=== PATIENT | male | born 1995 | race Caucasian/White ===

== ENCOUNTER 2017-05-20 09:21 | Outpatient (CLI) | payer OTHER ==
[2017-05-20 17:53] LABS: BASOPHILS % (AUTO) 0.4 %; EOSINOPHILS # (AUTO) 0.1 10^3/uL (0.0-0.7); HCT - HEMATOCRIT 42.7 % (42.0-52.0); HGB - HEMOGLOBIN 14.1 g/dL (14.0-18.0); LYMPHOCYTES % (AUTO) 19.2 %; MEAN CORPUSCULAR HEMOGLOBIN 27.5 pg (27.0-31.0); MEAN CORPUSCULAR VOLUME 83.3 fL (80.0-94.0); MEAN PLATELET VOLUME 9.1 fL (7.4-11.4); MONOCYTES # (AUTO) 0.8 10^3/uL (0.0-1.0); MONOCYTES % (AUTO) 7.3 %; NEUTROPHILS # (AUTO) 7.7 10^3/uL (1.5-6.6); NEUTROPHILS % (AUTO) 72.1 %; NUCLEATED RED BLOOD CELLS AUTO 0.2 /100WBC; RED BLOOD COUNT 5.13 10^6/uL (4.70-6.10); UNCORRECTED WHITE BLOOD COUNT 10.6 x10^3/uL; WHITE BLOOD COUNT 10.6 x10^3/uL (4.8-10.8)
[2017-05-20 18:00] LABS: BILIRUBIN,URINE NEGATIVE (NEGATIVE); PH,URINE 7.5 PH (5.0-7.5)
[2017-05-20 18:18] LABS: ALBUMIN/GLOBULIN RATIO 1.4 (1.0-2.2); BILIRUBIN,TOTAL 0.8 mg/dL (0.2-1.0); CALCIUM 9.3 mg/dL (8.5-10.3); CREATININE 0.6 mg/dL (0.6-1.2); POTASSIUM 3.7 mmol/L (3.5-5.0); TOTAL PROTEIN 7.7 g/dL (6.7-8.2)
[2017-05-20 18:27] LABS: WBC,URINE 0-3 /HPF (0-3)
[2017-05-21 08:56] LABS: TEST RESULT REPORT (())
[2017-05-25 23:58] LABS: HSV 1 IGG INDEX <0.90 INDEX (()); HSV 1/2 IGM INDEX <0.90 INDEX (()); HSV 2 IGG INDEX <0.90 INDEX (())
== END 2017-05-20 09:22 | disposition home or self-care (01) ==
LOC: LAB.F 09:21
PROVIDERS: ATTEND Internal Medicine
DX: Z00.00 Encounter for general adult medical examination without abnormal findings (principal); R31.0 Gross hematuria; Z11.3 Encounter for screening for infections with a predominantly sexual mode of transmission
CPT/HCPCS: 36415; 80053; 81001; 81599; 85025; 86592; 86694; 86695; 86696; 86803; 87389; 87491; 87591

== ENCOUNTER 2017-05-27 11:30 | Outpatient (CLI) | payer OTHER ==
[2017-05-27 18:22] LABS: BILIRUBIN,URINE NEGATIVE (NEGATIVE)
[2017-05-27 18:32] LABS: UR CULTURE IF IND NOT INDICATED; WBC,URINE 0-3 /HPF (0-3)
== END 2017-05-27 11:31 | disposition home or self-care (01) ==
LOC: LAB.R 11:30
PROVIDERS: ATTEND Family Medicine
DX: R31.0 Gross hematuria (principal)
CPT/HCPCS: 81001; 87086

== ENCOUNTER 2017-06-17 11:09 | Outpatient (CLI) | payer OTHER ==
[2017-06-17] MEDS ORDERED: IOPAMIDOL-300 100 ML VIAL ONE (12:11)
[2017-06-17] MEDS ORDERED: IOPAMIDOL-300 100 ML VIAL IVP ONE (12:39)
--- NOTE | 2017-06-17 14:28 | CT Report ---
EXAM: CT ABDOMEN AND PELVIS WITHOUT AND WITH CONTRAST (CT IVP) EXAM DATE: 06/17/2017 01:53 PM. CLINICAL HISTORY: Hematuria gross. COMPARISONS: None. TECHNIQUE: Routine helical imaging was performed through the kidneys, ureters and bladder before and after IV contrast administration. IV Contrast: 100 cc Isovue-300. Reconstructions: Coronal and sagitt al. In accordance with CT protocol optimization, one or more of the following dose reduction techniques w ere utilized for this exam: automated exposure control, adjustment of mA and/or KV based on patient s ize, or use of iterative reconstructive technique. FINDINGS: Lung Bases: Clear. Right Kidney/Ureter: A 3 x 4 mm proximal right ureteral calculus at the L3-L4 disk space level result s in moderate hydronephrosis and proximal ureteral dilatation. No residual intrarenal calculus or foc al renal lesion. Diffuse renal swelling and delayed contrast excretion with persistent nephrogram. Co llecting system and ureter are not opacified on delayed scan. No perinephric fluid or significant per inephric fat stranding. Decompressed distal ureter. Left Kidney/Ureter: No hydronephrosis, hydroureter, or ureteral calculus. At least 5 small intrarenal calculi, largest 3 mm in upper pole, others punctate. Normal parenchymal enhancement. A tiny mid trina e cyst. No suspicious filling defects in the opacified collecting system and ureter. Other Abdominal Organs: The liver, spleen, pancreas, gallbladder, and adrenal glands are unremarkable .No calcified gallstone or biliary ductal dilatation. Peritoneal Cavity/Bowel: No free fluid, free air or adenopathy. No intestinal dilatation. Normal appe ndix. Pelvic Organs: No stone or gross abnormality of the suboptimally distended bladder. Other pelvic orga ns unremarkable. Vasculature: Unremarkable. Bones: Mild grade 1 anterolisthesis L5 on S1 secondary to bilateral pars defect. Small sclerotic foci in bilateral femoral heads, presumably benign bone islands. IMPRESSION: 1. A 3 x 4 mm obstructing proximal right ureteral calculus at the L3-L4 disk space level results in m oderate right hydronephrosis and renal functional delay. No perinephric fluid. 2. Nonobstructive left nephrolithiasis. No residual right intrarenal calculus. 3. No other suspicious findings of the upper tracts. Grossly unremarkable bladder. 4. Note made of grade 1 anterolisthesis L5 on S1 secondary to bilateral L5 pars defect. Other inciden danya findings, as noted. [facility] Referring Provider Line: [phone] SITE ID: [id number]
== END 2017-06-17 11:10 | disposition home or self-care (01) ==
LOC: DI 11:09
PROVIDERS: ATTEND Family Medicine
DX: N13.2 Hydronephrosis with renal and ureteral calculous obstruction (principal); N20.0 Calculus of kidney
CPT/HCPCS: 74178; Q9967

== ENCOUNTER 2017-06-17 12:57 | Emergency (ER) | payer OTHER ==
[2017-06-17 14:03] LABS: BASOPHILS % (AUTO) 0.3 %; EOSINOPHILS # (AUTO) 0.1 10^3/uL (0.0-0.7); HCT - HEMATOCRIT 41.4 % (42.0-52.0); LYMPHOCYTES # (AUTO) 2.4 10^3/uL (1.5-3.5); LYMPHOCYTES % (AUTO) 20.8 %; MEAN CORPUSCULAR HEMOGLOBIN 27.2 pg (27.0-31.0); MEAN CORPUSCULAR HGB CONC 33.8 g/dL (32.0-36.0); MEAN CORPUSCULAR VOLUME 80.6 fL (80.0-94.0); MEAN PLATELET VOLUME 7.6 fL (7.4-11.4); MONOCYTES # (AUTO) 1.1 10^3/uL (0.0-1.0); NEUTROPHILS # (AUTO) 7.7 10^3/uL (1.5-6.6); NEUTROPHILS % (AUTO) 67.9 %; RED BLOOD COUNT 5.14 10^6/uL (4.70-6.10); RED CELL DISTRIBUTION WIDTH 13.4 % (12.0-15.0); UNCORRECTED WHITE BLOOD COUNT 11.3 x10^3/uL; WHITE BLOOD COUNT 11.3 x10^3/uL (4.8-10.8)
[2017-06-17 14:13] LABS: BILIRUBIN,URINE NEGATIVE (NEGATIVE); PH,URINE 7.5 PH (5.0-7.5)
[2017-06-17 14:15] LABS: UA w/ MICROSCOPIC CHARGE YES
[2017-06-17 14:21] LABS: ALBUMIN/GLOBULIN RATIO 1.5 (1.0-2.2); BILIRUBIN,TOTAL 1.1 mg/dL (0.2-1.0); CALCIUM 9.8 mg/dL (8.5-10.3); CREATININE 1.4 mg/dL (0.6-1.2); POTASSIUM 3.5 mmol/L (3.5-5.0); TOTAL PROTEIN 7.8 g/dL (6.7-8.2)
[2017-06-17 14:22] LABS: UR CULTURE IF IND NOT INDICATED; WBC,URINE 0-3 /HPF (0-3)
--- NOTE | 2017-06-17 14:59 | ED Physician Documentation ---
PD HPI NVD - Stated complaint Stated Complaint: ABD PX - Chief complaint Chief Complaint: Abd Pain - History obtained from History obtained from: Patient - History of Present Illness Timing - onset: Yesterday Timing - details: Still present Associated symptoms: Abdominal pain Recently seen: Clinic (Was seen in clinic three weeks ago for hematuria. A CT scan was ordered at that time, and the patient just underwent the study today.) - Additonal information Additional information: The patient is a 21-year-old male who presents with abdominal pain radiating to his right flank. The pain started yesterday and was worse during the night. He reports associated vomiting yesterday, but not today. He denies diarrhea or fever. He denies dysuria. He reports a history of constipation in the past, stating that his last bowel movement was "a couple of days ago." 3 weeks ago he had hematuria and was seen in clinic. A CT scan of the abdomen and pelvis was performed to evaluate the renal collecting system at that time. The patient had the study done today just prior to coming to the emergency department. Review of Systems Constitutional: reports: Chills. denies: Fever Nose: denies: Congestion Throat: denies: Sore throat Cardiac: denies: Chest pain / pressure Respiratory: denies: Dyspnea, Cough GI: reports: Abdominal Pain, Nausea, Vomiting. denies: Diarrhea : denies: Dysuria Skin: denies: Rash Musculoskeletal: reports: Back pain (Right flank). denies: Extremity pain Neurologic: denies: Focal weakness, Numbness, Headache PD PAST MEDICAL HISTORY - Past Medical History Past Medical History: No Endocrine/Autoimmune: None - Past Surgical History Past Surgical History: No - Present Medications Home Medications: Ambulatory Orders Medication Instructions Recorded Confirmed HYDROcod/ACETAM 5/325 [[place] 5/325] 1 - 2 ea PO Q6H PRN #20 tablet 06/17/17 Promethazine [Phenergan] 25 - 50 mg PO Q6H PRN #10 tab 06/17/17 - Allergies Allergies/Adverse Reactions: Allergies Allergy/AdvReac Type Severity Reaction Status Date / Time No Known Drug Allergies Allergy Verified 06/17/17 13:12 - Social History Does the pt smoke?: Yes Smoking Status: Current every day smoker Does the pt drink ETOH?: Yes Does the pt have substance abuse?: No - Immunizations Immunizations are current?: Yes - POLST Patient has POLST: No PD ED PE NORMAL - Vitals Vital signs reviewed: Yes (Borderline hypertension initially.) - General General: Alert and oriented X 3, Well developed/nourished - HEENT HEENT: Atraumatic, Pharynx benign - Neck Neck: Supple, no meningeal sign, No adenopathy - Cardiac Cardiac: RRR, No murmur - Respiratory Respiratory: No respiratory distress, Clear bilaterally - Abdomen Abdomen: Normal bowel sounds, Soft, No organomegaly, Other (Mild tenderness palpation in the right mid to lower abdomen, without rebound tenderness or guarding.) - Back Back: Other (Right CVA tenderness to percussion.) - Derm Derm: No rash - Extremities Extremities: No edema, No calf tenderness / cord - Neuro Neuro: Alert and oriented X 3, No motor deficit, Normal speech Results - Vitals Vitals: Vital Signs - 24 hr 06/17/17 06/17/17 13:10 15:48 Temperature 36.7 C 36.5 C Heart Rate 100 65 Respiratory 20 18 Rate Blood Pressure 136/77 H 144/79 H O2 Saturation 100 100 Oxygen O2 Source Room air - Labs Labs: Laboratory Tests 06/17/17 06/17/17 06/17/17 13:51 13:51 14:00 WBC 11.3 H RBC 5.14 Hgb 14.0 Hct 41.4 L MCV 80.6 MCH 27.2 MCHC 33.8 RDW 13.4 Plt Count 277 MPV 7.6 Neut # 7.7 H Lymph # 2.4 [place] # 1.1 H Eos # 0.1 Baso # 0.0 Absolute Nucleated RBC 0.00 Nucleated RBCs 0.0 Sodium 137 Potassium 3.5 Chloride 100 L Carbon Dioxide 26 Anion Gap 11.0 BUN 18 Creatinine 1.4 H Estimated GFR (MDRD) 64 L Glucose 88 Calcium 9.8 Total Bilirubin 1.1 H AST 28 ALT 24 Alkaline Phosphatase 78 Total Protein 7.8 Albumin 4.7 Globulin 3.1 Albumin/Globulin Ratio 1.5 Lipase 19 L Urine Color YELLOW Urine Clarity CLOUDY Urine pH 7.5 Ur Specific [place] <=1.005 Urine Protein NEGATIVE Urine Glucose (UA) NEGATIVE Urine Ketones 40 H Urine Occult Blood NEGATIVE Urine Nitrite NEGATIVE Urine Bilirubin NEGATIVE Urine Urobilinogen 0.2 (NORMAL) Ur Leukocyte Esterase NEGATIVE Urine RBC None Seen Urine WBC 0-3 Ur Squamous Epith Cells FEW Squamous Amorphous Sediment Marked Urine Bacteria None Seen Ur Microscopic Review INDICATED Urine Culture Comments NOT INDICATED - Rads (name of study) CT abd/pelvis w/IV contrast Radiology: Prelim report reviewed, EMP read contemporaneously, See rad report ( 1. A 3 x 4 mm obstructing proximal right ureteral calculus at the L3-L4 disc space level results in moderate right hydronephrosis and renal functional delay. No perinephric fluid.1. A 3 x 4 mm obstructing proximal right ureteral calculus at the L3-L4 disc space level results in moderate right hydronephrosis and renal functional delay. No perinephric fluid. 2. Nonobstructive left nephrolithiasis. No residual right intrarenal calculus. 3. No other suspicious findings of the upper tracts. Grossly unremarkable bladder. 4. Note made of grade 1 anterolisthesis L5 on S1 secondary to bilateral L5 pars defect.) PD MEDICAL DECISION MAKING - ED course Complexity details: reviewed old records, reviewed results, re-evaluated patient , considered differential, d/w patient, d/w family ED course: The patient's presentation is most consistent with renal colic with a right proximal ureteral stone with moderate hydronephrosis seen on CT scan. His presentation does not suggest pyelonephritis. Treatment in the emergency department included administration of normal saline 1 L IV, hydromorphone 0.5 mg IV, Zofran 4 mg IV, and ketorolac 30 mg IV. His pain and nausea completely resolved with the above treatment. I discussed his presentation with Dr. Conley , electronics commodity manager for Dr. Domínguez, who is the patient's primary physician. I also discussed the diagnosis with his mother by telephone. I discussed with the patient the diagnosis, symptomatic treatment and outpatient follow-up, as well as potentially worrisome signs or symptoms that should prompt reevaluation in the emergency department. He is being discharged with prescriptions for Vicodin and for Phenergan. Departure - Departure Disposition: 01 Home, Self Care Clinical Impression: Renal colic, Right ureteral calculus Condition: Stable Instructions: ED Stone Renal W Colic Follow-Up: Inocente Domínguez MD [Provider Admit Priv/Credential] - Prescriptions: HYDROcod/ACETAM 5/325 [[place] 5/325] 1 - 2 ea PO Q6H PRN #20 tablet PRN Reason: Pain Promethazine [Phenergan] 25 - 50 mg PO Q6H PRN #10 tab PRN Reason: Nausea / Vomiting Comments: Drink plenty of fluids. You can use ibuprofen, up to 800 mg 3 times daily for its antispasm effect. You can use Vicodin as prescribed if needed for pain. You can use Phenergan as prescribed if needed for nausea. Follow up with your primary physician within 1 week. Call to schedule appointment. Return to the emergency department if you develop increasing abdominal pain, persistent vomiting, fever, or otherwise worsening symptoms. Discharge Date/Time: 06/17/17 17:06
[2017-06-17] MEDS ORDERED: SODIUM CHLORIDE 0.9% 1,000 ML IV ONE (15:04)
[2017-06-17] MEDS ORDERED: ONDANSETRON 4 MG/2 ML VIAL IVP STA (15:04)
[2017-06-17] MEDS ORDERED: KETOROLAC 60 MG/2 ML VIAL IVP STA (15:04)
[2017-06-17] MEDS ORDERED: HYDROmorphone 1 MG/ML SYRINGE IVP STA (15:04)
[2017-06-17] MEDS ORDERED: HYDROmorphone 1 MG/ML SYRINGE ONE (15:19)
[2017-06-17] MEDS ORDERED: ONDANSETRON 4 MG/2 ML VIAL ONE (15:19)
[2017-06-17] MEDS ORDERED: SODIUM CHLORIDE FLUSH 0.9% 10 ML SYRINGE IVP ONE (15:20)
[2017-06-17] MEDS ORDERED: KETOROLAC 30 MG/ML VIAL ONE (15:20)
[2017-06-17 15:49] VITALS: BP 144/79
== END 2017-06-17 17:06 | disposition home or self-care (01) ==
LOC: ED 12:57
DX: N13.2 Hydronephrosis with renal and ureteral calculous obstruction (principal); F17.200 Nicotine dependence, unspecified, uncomplicated
CPT/HCPCS: 36415; 74178; 80053; 81001; 83690; 85025; 96374; 96375; 99283; 99284; J1170; Q9967; 81003; 87086

== ENCOUNTER 2017-06-28 14:23 | Outpatient (CLI) | payer OTHER ==
[2017-06-28 18:04] LABS: BILIRUBIN,URINE NEGATIVE (NEGATIVE)
[2017-06-28 18:27] LABS: WBC,URINE 0-3 /HPF (0-3)
[2017-06-28 18:58] LABS: CALCIUM 9.3 mg/dL (8.5-10.3); CREATININE 1.2 mg/dL (0.6-1.2); PHOSPHORUS 3.3 mg/dL (2.5-4.6); POTASSIUM 3.8 mmol/L (3.5-5.0)
== END 2017-06-28 14:24 | disposition home or self-care (01) ==
LOC: LAB.F 14:23
PROVIDERS: ATTEND Internal Medicine
DX: N20.0 Calculus of kidney (principal); N17.9 Acute kidney failure, unspecified; R31.0 Gross hematuria
CPT/HCPCS: 36415; 80048; 81001; 83970; 84100; 87086

== ENCOUNTER 2017-08-11 10:56 | Outpatient (CLI) | payer OTHER ==
[2017-08-12 18:10] LABS: BASOPHILS % (AUTO) 0.5 %; EOSINOPHILS # (AUTO) 0.1 10^3/uL (0.0-0.7); EOSINOPHILS % (AUTO) 1.3 %; HCT - HEMATOCRIT 40.8 % (42.0-52.0); HGB - HEMOGLOBIN 13.6 g/dL (14.0-18.0); LYMPHOCYTES # (AUTO) 2.2 10^3/uL (1.5-3.5); LYMPHOCYTES % (AUTO) 27.8 %; MEAN CORPUSCULAR HEMOGLOBIN 27.7 pg (27.0-31.0); MEAN CORPUSCULAR HGB CONC 33.4 g/dL (32.0-36.0); MEAN CORPUSCULAR VOLUME 82.9 fL (80.0-94.0); MEAN PLATELET VOLUME 8.6 fL (7.4-11.4); MONOCYTES # (AUTO) 0.7 10^3/uL (0.0-1.0); MONOCYTES % (AUTO) 8.9 %; NEUTROPHILS # (AUTO) 4.8 10^3/uL (1.5-6.6); NEUTROPHILS % (AUTO) 61.5 %; RED BLOOD COUNT 4.92 10^6/uL (4.70-6.10); RED CELL DISTRIBUTION WIDTH 13.6 % (12.0-15.0); UNCORRECTED WHITE BLOOD COUNT 7.9 x10^3/uL; WHITE BLOOD COUNT 7.9 x10^3/uL (4.8-10.8)
[2017-08-12 18:17] LABS: CALCIUM 9.7 mg/dL (8.5-10.3); CREATININE 0.8 mg/dL (0.6-1.2); POTASSIUM 3.8 mmol/L (3.5-5.0)
[2017-08-14 06:23] LABS: TEST RESULT REPORT
[2017-08-17 22:11] LABS: TEST RESULT REPORT
[2017-08-26 08:32] LABS: TEST RESULT AMENDED
== END 2017-08-11 23:59 | disposition home or self-care (01) ==
LOC: LAB.F 10:56
PROVIDERS: ATTEND Family Medicine
DX: N17.9 Acute kidney failure, unspecified (principal); N20.0 Calculus of kidney
CPT/HCPCS: 36415; 80048; 81599; 82340; 82507; 83945; 84560; 85025

== ENCOUNTER 2017-08-12 09:30 | Outpatient (CLI) | payer OTHER | END 2017-08-12 09:31 | disposition home or self-care (01) | LOC: LAB.F 09:30 | PROVIDERS: ATTEND Family Medicine | DX: N20.0 Calculus of kidney (principal) | CPT/HCPCS: 81599; 82340 ==

== ENCOUNTER → 2017-08-12 | Outpatient (CLI) | payer OTHER ==
[2017-08-12 18:10] LABS: BASOPHILS % (AUTO) 0.5 %; EOSINOPHILS # (AUTO) 0.1 10^3/uL (0.0-0.7); EOSINOPHILS % (AUTO) 1.3 %; HCT - HEMATOCRIT 40.8 % (42.0-52.0); HGB - HEMOGLOBIN 13.6 g/dL (14.0-18.0); LYMPHOCYTES # (AUTO) 2.2 10^3/uL (1.5-3.5); LYMPHOCYTES % (AUTO) 27.8 %; MEAN CORPUSCULAR HEMOGLOBIN 27.7 pg (27.0-31.0); MEAN CORPUSCULAR HGB CONC 33.4 g/dL (32.0-36.0); MEAN CORPUSCULAR VOLUME 82.9 fL (80.0-94.0); MEAN PLATELET VOLUME 8.6 fL (7.4-11.4); MONOCYTES # (AUTO) 0.7 10^3/uL (0.0-1.0); MONOCYTES % (AUTO) 8.9 %; NEUTROPHILS # (AUTO) 4.8 10^3/uL (1.5-6.6); NEUTROPHILS % (AUTO) 61.5 %; RED BLOOD COUNT 4.92 10^6/uL (4.70-6.10); RED CELL DISTRIBUTION WIDTH 13.6 % (12.0-15.0); UNCORRECTED WHITE BLOOD COUNT 7.9 x10^3/uL; WHITE BLOOD COUNT 7.9 x10^3/uL (4.8-10.8)
[2017-08-12 18:17] LABS: CALCIUM 9.7 mg/dL (8.5-10.3); CREATININE 0.8 mg/dL (0.6-1.2); POTASSIUM 3.8 mmol/L (3.5-5.0)
== END ==
LOC: LAB.F 10:37
PROVIDERS: ATTEND Family Medicine
DX: E78.5 Hyperlipidemia, unspecified (principal); E03.9 Hypothyroidism, unspecified; I10 Essential (primary) hypertension
CPT/HCPCS: 36415; 80048; 85025

== ENCOUNTER 2018-10-28 15:08 | Emergency (ER) | payer OTHER ==
[2018-10-28] MEDS ORDERED: TETANUS/DIPHTHERIA/PERTUSSIS 0.5 ML SYRINGE IM ONE (16:06)
[2018-10-28] MEDS ORDERED: BUPIVACAINE 0.5% PF 10 ML VIAL SUBQ STA (16:06)
--- NOTE | 2018-10-28 17:08 | XRAY Report ---
Reason: left ring finger injury Procedure Date: 10/28/2018 Accession Number: [id number] / [id number] Procedure: XR - Finger(s) LT CPT Code: FULL RESULT: EXAM: LEFT FOURTH DIGIT RADIOGRAPHY EXAM DATE: 10/28/2018 04:39 PM. CLINICAL HISTORY: Left finger pain. COMPARISON: XR WRIST COMPLETE 3 VIEWS 12/22/2012 8:26 PM. TECHNIQUE: 3 views. FINDINGS: Bones: Normal. No fracture or bone lesion. Joints: Normal. No subluxations. Soft Tissues: Normal. No soft tissue swelling. IMPRESSION: Normal digit radiography. [facility]
--- NOTE | 2018-10-28 17:08 | ED Physician Documentation ---
PD HPI UPPER EXT INJURY - Stated complaint Stated Complaint: FINGER LAC - Chief complaint Chief Complaint: Laceration - History obtained from History obtained from: Patient - History of Present Illness Location: Left, Finger (ring) Type of injury: Other (cut on a jointer) Where injury occurred: Work Timing - onset: How many minutes ago (Just prior to arrival.) - Additonal information Additional information: The patient is a 23-year-old male who cut his left ring finger on a jointer less than one hour prior to arrival, while at work. He is right hand dominant. Tetanus status is uncertain. Review of Systems Skin: reports: Laceration (s) Musculoskeletal: reports: Extremity pain (left ring finger) Neurologic: denies: Focal weakness, Numbness PD PAST MEDICAL HISTORY - Past Medical History Past Medical History: Yes Endocrine/Autoimmune: None : Kidney stones - Past Surgical History Past Surgical History: No - Present Medications Home Medications: Ambulatory Orders Medication Instructions Recorded Confirmed HYDROcod/ACETAM 5/325 [[place] 5/325] 1 - 2 ea PO Q6H PRN #20 tablet 06/17/17 Promethazine [Phenergan] 25 - 50 mg PO Q6H PRN #10 tab 06/17/17 Hydrocodone/Acetaminophen 1 - 2 each PO Q6H PRN #14 tablet 10/28/18 [Hydrocodon-Acetaminophen 5-325] - Allergies Allergies/Adverse Reactions: Allergies Allergy/AdvReac Type Severity Reaction Status Date / Time No Known Drug Allergies Allergy Verified 06/17/17 13:12 - Social History Does the pt smoke?: Yes Smoking Status: Current every day smoker Does the pt drink ETOH?: Yes Does the pt have substance abuse?: No - Immunizations Immunizations are current?: No Immunizations: TDAP >10years/unknown - POLST Patient has POLST: No PD ED PE NORMAL - Vitals Vital signs reviewed: Yes (Initially hypertensive.) - General General: Alert and oriented X 3, Well developed/nourished - HEENT HEENT: Atraumatic - Respiratory Respiratory: No respiratory distress - Derm Derm: No rash - Extremities Extremities: Other (There is skin avulsion off the volar pad of the distal phalanx of the left ring finger. The avulsion is about 1 cm x 0.5 cm in size. Distal neurovascular is intact. There is no involvement of the DIP or PIP joints.) - Neuro Neuro: Alert and oriented X 3, No motor deficit, No sensory deficit Results - Vitals Vitals: Oxygen O2 Source Room air - Rads (name of study) left ring finger Radiology: Prelim report reviewed, EMP read contemporaneously, See rad report (Normal digit radiography.) Procedures - Regional nerve block Nerve block site: Digital - note digit(s) (left ring finger) Right / left: Left Nerve block anesthesia: Marcaine 0.5% Nerve block aftercare: Excellent anesthesia, Patient tolerated well, No complications PD MEDICAL DECISION MAKING - ED course Complexity details: reviewed results, re-evaluated patient, considered di fferential, d/w patient, other (An L&I form was completed.) ED course: The patient's presentation is significant for skin avulsion of the volar pad of his left ring finger. Suturing is not able to be performed because the skin has been completely avulsed. X-ray reveals no evidence of bony abnormality. Treatment in the emergency department included digital block with 0.5% Marcaine. The wound was thoroughly cleaned. Xeroform and tube gauze dressing was applied. He is being discharged with prescription for Vicodin, 14 tablets. I discussed with him and his employer the expected course of injury, symptomatic treatment and outpatient follow-up, as well as potentially worrisome signs or symptoms that should prompt reevaluation in the emergency department. An L&I form was completed. Departure - Departure Disposition: 01 Home, Self Care Clinical Impression: Avulsion of skin of finger Qualifiers: Encounter type: initial encounter Qualified Code(s): S61.209A - Unspecified open wound of unspecified finger without damage to nail, initial encounter Condition: Stable Instructions: ED Laceration Hand Follow-Up: Inocente Domínguez MD [Provider Admit Priv/Credential] - Prescriptions: Hydrocodone/Acetaminophen [Hydrocodon-Acetaminophen 5-325] 1 - 2 each PO Q6H PRN #14 tablet PRN Reason: pain Comments: Keep your left hand elevated as much the time as possible. Keep the wound dressing clean. Change the wound dressing daily, and apply new antibiotic ointment daily. Follow-up with your primary physician within 2 weeks. Call to schedule an appointment. Return to the emergency department if you develop any sign of infection, or otherwise worsening symptoms. Discharge Date/Time: 10/28/18 17:24
[2018-10-28 17:27] VITALS: BP 109/64
== END 2018-10-28 17:24 | disposition home or self-care (01) ==
LOC: ED 15:08
DX: S61.215A Laceration without foreign body of left ring finger without damage to nail, initial encounter (principal); W31.2XXA Contact with powered woodworking and forming machines, initial encounter; Y99.0 Civilian activity done for income or pay; F17.200 Nicotine dependence, unspecified, uncomplicated; Z23 Encounter for immunization
CPT/HCPCS: 1040M; 64450; 73140; 90471; 90715; 99283

== ENCOUNTER 2019-04-06 12:45 | Emergency (ER) | payer OTHER ==
--- NOTE | 2019-04-06 14:45 | XRAY Report ---
Reason: cut right thumb with table saw Procedure Date: 04/06/2019 Accession Number: [id number] / [id number] Procedure: XR - Finger(s) RT CPT Code: FULL RESULT: EXAM: RIGHT FIRST DIGIT RADIOGRAPHY EXAM DATE: 04/06/2019 02:29 PM. CLINICAL HISTORY: Cut right thumb with table saw. COMPARISON: None. TECHNIQUE: 3 views. FINDINGS: Bones: Comminuted fracture of first terminal tuft with separation of fracture fragments from the underlying bone. Joints: Normal. No subluxations. Soft Tissues: Soft tissue swelling and irregularity due to laceration. IMPRESSION: Comminuted first terminal tuft fracture with associated soft tissue disruption. [facility]
[2019-04-06] MEDS ORDERED: BUPIVACAINE 0.5% PF 10 ML VIAL SUBQ STA (15:20)
[2019-04-06] MEDS ORDERED: BUFFERED LIDOCAINE 10 ML SYRINGE SUBQ STA (15:42)
--- NOTE | 2019-04-06 15:44 | ED Physician Documentation ---
PD HPI UPPER EXT INJURY - Stated complaint Stated Complaint: THUMB LACERATION - Chief complaint Chief Complaint: Ext Problem - History obtained from History obtained from: Patient - History of Present Illness Location: Right, Finger (thumb) Type of injury: Laceration Where injury occurred: Work Timing - onset: Today Timing - duration: Minutes Timing - details: Abrupt onset, Still present Improved by: Rest, Immobilization Worsened by: Moving, Palpating Associated symptoms: No: Weakness, Numbness Contributing factors: No: Anticoagulated Similar symptoms before: Diagnosis (finger tip injury) - Additonal information Additional information: 23-year-old male using power equipment for woodworking pushed his right thumb into the tip of the table saw blade. He has lacerated the thumb in an axial manner. He has had prior similar injuries and is up-to-date on his tetanus. Review of Systems Constitutional: denies: Fever Eyes: denies: Decreased vision Ears: denies: Ear pain Nose: denies: Congestion Throat: denies: Sore throat Cardiac: denies: Chest pain / pressure Respiratory: denies: Cough GI: denies: Vomiting Skin: reports: Laceration (s) PD PAST MEDICAL HISTORY - Past Medical History Past Medical History: No Cardiovascular: None Respiratory: None Neuro: None Endocrine/Autoimmune: None GI: None : Kidney stones HEENT: None Psych: None Musculoskeletal: None Derm: None - Past Surgical History Past Surgical History: No - Present Medications Home Medications: Ambulatory Orders Medication Instructions Recorded Confirmed HYDROcod/ACETAM 5/325 [[place] 5/325] 1 - 2 ea PO Q6H PRN #20 tablet 06/17/17 Promethazine [Phenergan] 25 - 50 mg PO Q6H PRN #10 tab 06/17/17 Hydrocodone/Acetaminophen 1 - 2 each PO Q6H PRN #14 tablet 10/28/18 [Hydrocodon-Acetaminophen 5-325] Cephalexin [Keflex] 500 mg PO Q6H #20 capsule 04/06/19 Hydrocodone/Acetaminophen 1 - 2 each PO Q6H PRN #14 tablet 04/06/19 [Hydrocodon-Acetaminophen 5-325] - Allergies Allergies/Adverse Reactions: Allergies Allergy/AdvReac Type Severity Reaction Status Date / Time No Known Drug Allergies Allergy Verified 04/06/19 12:52 - Social History Does the pt smoke?: Yes Smoking Status: Current every day smoker Does the pt drink ETOH?: Yes Does the pt have substance abuse?: No - Immunizations Immunizations are current?: No Immunizations: TDAP >10years/unknown - POLST Patient has POLST: No PD ED PE NORMAL - Vitals Vital signs reviewed: Yes (hypertensive ) - General General: Alert and oriented X 3, Well developed/nourished, Other (appears anxious and in pain) - HEENT HEENT: Atraumatic, PERRL - Respiratory Respiratory: No respiratory distress - Derm Derm: Normal color, Warm and dry, No rash - Extremities Extremities: Other (There is a 3.5cm laceration to the thumbtip from the radial surface to the ulnar surface and this involved the tip of the nailbed and extends to the pulp of the thumb tip. There is palpable bone and about 4mm of the nailbed is missing distally ) - Neuro Neuro: Alert and oriented X 3, No motor deficit, No sensory deficit, Normal speech Eye Opening: Spontaneous Motor: Obeys Commands Verbal: Oriented GCS Score: 15 - Psych Psych: Normal mood, Normal affect Results - Vitals Vitals: Vital Signs - 24 hr 04/06/19 12:46 Temperature 36.0 C L Heart Rate 89 Respiratory 19 Rate Blood Pressure 149/94 H O2 Saturation 98 Oxygen O2 Source Room air - Rads (name of study) thumb Radiology: Prelim report reviewed (Impression: Comminuted first terminal tuft fracture with associated soft tissue disruption.), EMP read indepedently, See rad report Procedures - Laceration (location) thumb R Wound type: Curved, Irregular, Flap, Into subcut fat, Clean Neurovascular status: Sensory intact, Motor intact, Vascular intact Anesthesia: Lidocaine 1%, Marcaine 0.5% (digital block), With bicarb, OTH (digital block with bupivicaine suplimented with local 1% lidocaine.) Wound Preparation: Hibiclens, Irrigated copiously NS, Wound explored, To the base, Wound edges modified, Multiple flaps aligned Skin layer closure: Nylon, Interrupted, Size #-0 - enter number (4-0) Other: Patient tolerated well, No complications, Neurovascular intact, Dressing applied, Tetanus UTD Complexity: Intermediate PD MEDICAL DECISION MAKING - ED course Complexity details: reviewed old records, reviewed results, re-evaluated patient, considered differential, d/w patient ED course: 23-year-old male with a distal thumb laceration has comminuted distal tuft fracture open and he is treated here in the emergency department with conservative closing of the wound with shortening of the thumb and excessive cleaning. We will place him on some Keflex and he will need follow-up for suture removal and wound care. Departure - Departure Disposition: 01 Home, Self Care Clinical Impression: Open fracture of tuft of distal phalanx of right thumb Laceration of thumb with damage to nail Qualifiers: Encounter type: initial encounter Foreign body presence: without foreign body Laterality: right Qualified Code(s): S61.111A - Laceration without foreign body of right thumb with damage to nail, initial encounter Condition: Stable Instructions: ED Laceration Hand, ED Fx Finger Open Follow-Up: [facility] [Provider Group] Prescriptions: Cephalexin [Keflex] 500 mg PO Q6H #20 capsule Hydrocodone/Acetaminophen [Hydrocodon-Acetaminophen 5-325] 1 - 2 each PO Q6H PRN #14 tablet PRN Reason: pain Forms: Activity restrictions
[2019-04-06 16:16] VITALS: BP 131/77
== END 2019-04-06 16:18 | disposition home or self-care (01) ==
LOC: ED 12:45
DX: S62.521B Displaced fracture of distal phalanx of right thumb, initial encounter for open fracture (principal); W29.8XXA Contact with other powered hand tools and household machinery, initial encounter; Y93.89 Activity, other specified; Y99.0 Civilian activity done for income or pay; F17.200 Nicotine dependence, unspecified, uncomplicated
CPT/HCPCS: 1040M; 12042; 73140; 99283; 99284

== ENCOUNTER 2021-03-05 08:00 | Outpatient (CLI) | payer OTHER ==
[2021-03-05 19:56] LABS: BASOPHILS % (AUTO) 0.5 %; EOSINOPHILS # (AUTO) 0.1 10^3/uL (0.0-0.7); EOSINOPHILS % (AUTO) 1.2 %; HCT - HEMATOCRIT 41.8 % (42.0-52.0); HGB - HEMOGLOBIN 14.2 g/dL (14.0-18.0); LYMPHOCYTES # (AUTO) 2.7 10^3/uL (1.5-3.5); LYMPHOCYTES % (AUTO) 33.1 %; MEAN CORPUSCULAR HEMOGLOBIN 28.1 pg (27.0-31.0); MEAN CORPUSCULAR VOLUME 82.8 fL (80.0-94.0); MEAN PLATELET VOLUME 10.2 fL (7.4-11.4); MONOCYTES # (AUTO) 0.7 10^3/uL (0.0-1.0); MONOCYTES % (AUTO) 8.2 %; NEUTROPHILS # (AUTO) 4.6 10^3/uL (1.5-6.6); NEUTROPHILS % (AUTO) 56.8 %; PLT - PLATELET COUNT 332 10^3/uL (130-450); RED BLOOD COUNT 5.05 10^6/uL (4.70-6.10); RED CELL DISTRIBUTION WIDTH 12.2 % (12.0-15.0); WHITE BLOOD COUNT 8.1 x10^3/uL (4.8-10.8)
[2021-03-05 20:19] LABS: ALBUMIN 4.7 g/dL (3.2-5.5); ALBUMIN/GLOBULIN RATIO 1.4 (1.0-2.2); CREATININE 0.7 mg/dL (0.6-1.2); POTASSIUM 3.9 mmol/L (3.5-5.0); TOTAL PROTEIN 8.1 g/dL (6.7-8.2)
[2021-03-05 20:58] LABS: THYROID STIMULATING HORMONE 2.55 uIU/mL (0.34-5.60)
== END 2021-03-05 23:59 | disposition home or self-care (01) ==
LOC: LAB.S 08:00
PROVIDERS: ATTEND Emergency Medicine
DX: R41.3 Other amnesia (principal)
CPT/HCPCS: 36415; 80053; 81001; 84443; 85025; 87086

== ENCOUNTER 2021-04-20 06:24 | Emergency (ER) | payer OTHER ==
[2021-04-20] MEDS ORDERED: SODIUM CHLORIDE 0.9% 1,000 ML IV STA (06:36)
[2021-04-20] MEDS ORDERED: KETOROLAC 15 MG/ML VIAL IVP STA (06:36)
[2021-04-20] MEDS ORDERED: ONDANSETRON 4 MG/2 ML VIAL IVP STA (06:36)
[2021-04-20 06:55] LABS: BASOPHILS % (AUTO) 0.2 %; EOSINOPHILS % (AUTO) 0.1 %; HCT - HEMATOCRIT 41.9 % (42.0-52.0); HGB - HEMOGLOBIN 14.2 g/dL (14.0-18.0); LYMPHOCYTES # (AUTO) 1.2 10^3/uL (1.5-3.5); LYMPHOCYTES % (AUTO) 9.5 %; MEAN CORPUSCULAR HEMOGLOBIN 28.4 pg (27.0-31.0); MEAN CORPUSCULAR HGB CONC 33.9 g/dL (32.0-36.0); MEAN CORPUSCULAR VOLUME 83.8 fL (80.0-94.0); MEAN PLATELET VOLUME 9.4 fL (7.4-11.4); MONOCYTES # (AUTO) 0.4 10^3/uL (0.0-1.0); MONOCYTES % (AUTO) 3.4 %; NEUTROPHILS # (AUTO) 10.6 10^3/uL (1.5-6.6); NEUTROPHILS % (AUTO) 86.6 %; PLT - PLATELET COUNT 355 10^3/uL (130-450); RED CELL DISTRIBUTION WIDTH 11.9 % (12.0-15.0); WHITE BLOOD COUNT 12.2 x10^3/uL (4.8-10.8)
[2021-04-20 07:06] LABS: GLUCOSE, URINE (UA) NEGATIVE (NEGATIVE); KETONES,URINE (UA) NEGATIVE (NEGATIVE); LEUKOCYTE ESTERASE, URINE NEGATIVE (NEGATIVE); NITRITE,URINE NEGATIVE (NEGATIVE); OCCULT BLOOD,URINE LARGE (NEGATIVE); PH,URINE 8.5 PH (5.0-7.5); PROTEIN,URINE 30 mg/dL (NEGATIVE); UROBILINOGEN,URINE 1 (NORMAL) E.U./dL (NORMAL)
[2021-04-20 07:08] LABS: BILIRUBIN,URINE NEGATIVE (NEGATIVE); CLARITY,URINE CLOUDY (CLEAR); ICTOTEST,URINE NEGATIVE
[2021-04-20 07:08] LABS: ALBUMIN 5.1 g/dL (3.2-5.5); ALBUMIN/GLOBULIN RATIO 1.6 (1.0-2.2); BILIRUBIN,TOTAL 0.9 mg/dL (0.2-1.0); CALCIUM 9.8 mg/dL (8.5-10.3); CREATININE 0.9 mg/dL (0.6-1.2); POTASSIUM 3.5 mmol/L (3.5-5.0); TOTAL PROTEIN 8.3 g/dL (6.7-8.2)
[2021-04-20 07:16] LABS: AMORPHOUS SEDIMENT,UR Moderate /LPF; BACTERIA,URINE Moderate /HPF (None Seen); MUCUS,URINE Moderate Strands; SQUAMOUS EPITHELIAL CELL,UR RARE Squamous (<= Few)
--- NOTE | 2021-04-20 07:41 | ED Physician Documentation ---
PD HPI ABD PAIN - Stated complaint Stated Complaint: VOMITING/ABD PX - Chief complaint Chief Complaint: Abd Pain - History obtained from History obtained from: Patient - History of Present Illness Timing - details: Abrupt onset Pain level max: 10 Pain level now: 5 Quality: Aching, Sharp, Pain Worsened by: No: Eating, Moving, Breathing, Position, Palpation Associated symptoms: Nausea, Vomiting. No: Fever, Hematemesis, Diarrhea, Constipation, Melena, Hematochezia, Dysuria, Hematuria - Additional information Additional information: Patient is a 25-year-old male with a history of kidney stones presents to the emergency department with left flank pain. Initially started on Wednesday, resolved on its own and then recurred this morning. States feels similar to prior kidney stones. States feels better in a warm shower, nothing makes it worse. No urinary symptoms. Pain is described as sharp and nonradiating. Took Motrin 2 days ago. Review of Systems Ten Systems: 10 systems reviewed and negative Constitutional: denies: Fever, Chills Throat: denies: Sore throat Cardiac: denies: Chest pain / pressure Respiratory: denies: Cough Skin: denies: Rash Musculoskeletal: denies: Neck pain, Back pain Neurologic: denies: Headache PD PAST MEDICAL HISTORY - Past Medical History Past Medical History: Yes Cardiovascular: None Respiratory: None Neuro: None Endocrine/Autoimmune: None GI: None : Kidney stones HEENT: None Psych: None Musculoskeletal: None Derm: None - Past Surgical History Past Surgical History: No - Present Medications Home Medications: Ambulatory Orders Medication Instructions Recorded Confirmed Cefdinir 300 mg PO BID #20 cap 04/20/21 Ibuprofen [Motrin] 800 mg PO Q8H PRN #30 tablet 04/20/21 Ondansetron Odt [Zofran] 4 mg TL Q6H PRN #10 tablet 04/20/21 Oxycodone HCl/Acetaminophen 1 - 2 each PO Q6H PRN #14 tablet 04/20/21 [Percocet 5-325 mg Tablet] - Allergies Allergies/Adverse Reactions: Allergies Allergy/AdvReac Type Severity Reaction Status Date / Time No Known Drug Allergies Allergy Verified 04/20/21 06:35 - Social History Does the pt smoke?: Yes Smoking Status: Current every day smoker Does the pt drink ETOH?: Yes Does the pt have substance abuse?: No - Immunizations Immunizations are current?: No Immunizations: TDAP >10years/unknown - POLST Patient has POLST: No PD ED PE NORMAL - Vitals Vital signs reviewed: Yes - General General: Alert and oriented X 3, No acute distress - HEENT HEENT: Moist mucous membranes - Neck Neck: Supple, no meningeal sign - Cardiac Cardiac: RRR - Respiratory Respiratory: No respiratory distress, Clear bilaterally - Abdomen Abdomen: Soft, Non tender, Non distended - Back Back: No CVA TTP, No spinal TTP - Derm Derm: Warm and dry - Neuro Neuro: Alert and oriented X 3 - Psych Psych: Normal mood, Normal affect Results - Vitals Vitals: Vital Signs - 24 hr 04/20/21 04/20/21 04/20/21 06:25 06:32 09:56 Temperature 36.8 C 36.8 C Heart Rate 111 H 111 H 94 Respiratory 16 16 16 Rate Blood Pressure 150/88 H 150/88 H 131/84 H O2 Saturation 100 100 98 Oxygen O2 Source Room air - Labs Labs: Laboratory Tests 04/20/21 04/20/21 04/20/21 06:30 06:40 06:40 WBC 12.2 H RBC 5.00 Hgb 14.2 Hct 41.9 L MCV 83.8 MCH 28.4 MCHC 33.9 RDW 11.9 L Plt Count 355 MPV 9.4 Neut # (Auto) 10.6 H Lymph # (Auto) 1.2 L Porter # (Auto) 0.4 Eos # (Auto) 0.0 Baso # (Auto) 0.0 Absolute Nucleated RBC 0.00 Nucleated RBC % 0.0 Sodium 141 Potassium 3.5 Chloride 104 Carbon Dioxide 24 Anion Gap 13.0 BUN 14 Creatinine 0.9 Estimated GFR (MDRD) 103 Glucose 128 H Calcium 9.8 Total Bilirubin 0.9 AST 23 ALT 25 Alkaline Phosphatase 71 Total Protein 8.3 H Albumin 5.1 Globulin 3.2 Albumin/Globulin Ratio 1.6 Lipase 98 H Urine Color YELLOW Urine Clarity CLOUDY Urine pH 8.5 H Ur Specific [place] 1.025 Urine Protein 30 H Urine Glucose (UA) NEGATIVE Urine Ketones NEGATIVE Urine Occult Blood LARGE H Urine Nitrite NEGATIVE Urine Bilirubin NEGATIVE Urine Urobilinogen 1 (NORMAL) Ur Leukocyte Esterase NEGATIVE Urine RBC 11-25 H Urine WBC 4-5 Ur Squamous Epith Cells RARE Squamous Amorphous Sediment Moderate Urine Bacteria Moderate H Urine Mucus Moderate Strands Ur Microscopic Review INDICATED Urine Culture Comments NOT INDICATED - Rads (name of study) CT abdomen and pelvis Radiology: Final report received, EMP read contemporaneously, See rad report (6 mm left mid ureteral calculus.) PD MEDICAL DECISION MAKING - ED course Complexity details: reviewed results, re-evaluated patient, considered differential, d/w patient ED course: Patient is well-appearing, nontoxic. Afebrile. Does have a possible UTI, will treat with Rocephin and placed on oral antibiotics for home. No evidence of sepsis. Discussed the case with urology from [facility], they recommend follow-up as an outpatient with his primary doctor and then can be referred to urology. If the patient worsens prior to that time, he can return to [facility] in [place] and see urology emergently. Patient counseled regarding signs and symptoms for which I believe and urgent re-evaluation would be necessary. Patient with good understanding of and agreement to plan and is comfortable going home at this time This document was made in part using voice recognition software. While efforts are made to proofread this document, sound alike and grammatical errors may occur. I am prescribing a short course of short-acting opioid pain medication for this patient. I have reviewed the patients [employer] and no concerning findings were noted. I have discussed that the opioids are for short term therapy only, and will not be refilled from the ED. Departure - Departure Disposition: 01 Home, Self Care Clinical Impression: Ureteral calculus, left UTI (urinary tract infection) Qualifiers: Urinary tract infection type: acute cystitis Hematuria presence: without hematuria Qualified Code(s): N30.00 - Acute cystitis without hematuria Condition: Good Instructions: ED UTI Cystitis Male, ED Stone Renal W Colic Follow-Up: your,doctor tomorrow [Other] Prescriptions: Cefdinir 300 mg PO BID #20 cap Ibuprofen [Motrin] 800 mg PO Q8H PRN #30 tablet PRN Reason: PAIN &/OR FEVER Oxycodone HCl/Acetaminophen [Percocet 5-325 mg Tablet] 1 - 2 each PO Q6H PRN #14 tablet PRN Reason: pain Ondansetron Odt [Zofran] 4 mg TL Q6H PRN #10 tablet PRN Reason: Nausea / Vomiting Comments: Take all antibiotics until gone. Return if you worsen including uncontrolled pain or fevers. I did speak with [facility] and they do recommend following up with your primary care doctor tomorrow for a recheck in [place]. They do state that if you do develop fevers, you would be able to go to [facility] to see a urologist there in the emergency department where they could potentially place a stent or remove the stone. I am prescribing a short course of narcotic pain medication for you. These are potentially dangerous and addictive medications that should be used carefully. These medications may constipate you. Take an [id number] stool softener (docusate) twice daily with plenty of water while taking these medications. If you go 24 hours without a bowel movement, take [id number] miralax, per package instructions. Do not drink or drive while taking these medications. If you received narcotic or sedating medications while in the emergency department, do not drive for 24 hours. Store this medication in a safe, secure place and out of reach of children. It is a violation of federal law to give or sell this medication to another person or to use in a manner other than prescribed. The ED will not refill narcotic prescriptions, including prescriptions lost or stolen. To dispose of unwanted medications: 1. [facility] [address] [facility] in [place] has a medication drop box. They accept prescription medications (in pill form) Wednesday through Wednesday 9:00 a.m. to 5:00 p.m. 2. The [facility] [employer] accepts prescription medications (in pill form only) for disposal year round. Call for more information. 3. Contact the [facility] for the next [facility] sponsored prescription drug collection event. , [phone], or [phone]; Discharge Date/Time: 04/20/21 09:55
--- NOTE | 2021-04-20 08:37 | CT Report ---
PROCEDURE: Abdomen/Pelvis WO INDICATIONS: L flank pain, h/o renal stones TECHNIQUE: Noncontrast 5 mm thick sections acquired from the diaphragms to the symphysis. 5 mm coronal and sagi ttal reformats were then performed. For radiation dose reduction, the following was used: automated exposure control, adjustment of mA and/or kV according to patient size. COMPARISON: 2116 FINDINGS: Image quality: Excellent. ABDOMEN: Lung bases: Lung bases are clear. Heart size is normal. A small hiatal hernia is incidentally note d. Solid organs: Liver and spleen are normal in size. Gallbladder wall does not appear thickened. P ancreas is normal in contours. No adrenal nodules. There is an obstructing stone seen within the left proximal ureter, as on series 3 image 63 and on se raven 6 image 38 measuring 6 mm. There is associated left-sided hydroureter and hydronephrosis. Nonobstructing bilateral renal stones are seen, which measure up to 4 mm on the right and up to 5 mm on the left. No right-sided hydronephrosis is seen. Peritoneum and bowel: Unenhanced bowel loops demonstrate normal wall thickness and caliber. No free fluid or air. A normal appendix is incidentally noted. Nodes and vessels: No retroperitoneal or mesenteric adenopathy by size criteria. Aorta and inferior vena cava are normal in caliber. Miscellaneous: No ventral hernias. PELVIS: Genitourinary: Bladder wall thickness is normal. No bladder stones are seen. Miscellaneous: No inguinal hernias or adenopathy. Bones: No suspicious bony lesions. No vertebral body compression fractures. Mild dextroconvex scol iotic curvature is seen. Grade 1 L5-S1 anterolisthesis is seen, with associated bilateral pars defect s. IMPRESSION: Obstructing 6 mm stone within the left proximal ureter. Nonobstructing bilateral renal stones are seen. Incidental note is made of: Small hiatal hernia Dextroconvex scoliotic curvature Normal appendix Grade 1 L5-S1 anterolisthesis, with associated pars defects Reviewed by: Woody Dhillon MD on 04/20/2021 7:36 AM AKDT Approved by: Woody Dhillon MD on 04/20/2021 7:36 AM AKDT Station ID: [id number]
[2021-04-20] MEDS ORDERED: cefTRIAXone 1 GM VIAL IVP STA (08:42)
[2021-04-20] MEDS ORDERED: LIDOCAINE-MPF 2% 4.5 ML in SODIUM CHLORIDE 0.9% 50 ML IV STA (09:02)
[2021-04-20] MEDS ORDERED: HYDROmorphone 1 MG/ML CARPUJECT IVP STA (09:03)
[2021-04-20 09:56] VITALS: BP 131/84
== END 2021-04-20 09:55 | disposition home or self-care (01) ==
LOC: ED 06:24
DX: N20.1 Calculus of ureter (principal); N30.00 Acute cystitis without hematuria; F17.200 Nicotine dependence, unspecified, uncomplicated
CPT/HCPCS: 36415; 74176; 80053; 81001; 83690; 85025; 96361; 96374; 96375; 99284; J1170; J7040; 81003; 87086

== ENCOUNTER 2021-06-26 08:00 | Outpatient (CLI) | payer OTHER ==
[2021-06-30 22:16] LABS: SPECIMEN SOURCE KIDNEY; STONE WEIGHT 0.094 g
== END 2021-06-26 23:59 | disposition home or self-care (01) ==
LOC: LAB.S 08:00
PROVIDERS: ATTEND Physician Assistant Medical
DX: N20.0 Calculus of kidney (principal)
CPT/HCPCS: 82365

== ENCOUNTER 2023-04-19 13:44 | Outpatient (CLI) | payer OTHER | END 2023-04-19 23:59 | disposition critical access hospital (66) | LOC: EMS 13:44 | DX: S01.01XA Laceration without foreign body of scalp, initial encounter (principal); S50.312A Abrasion of left elbow, initial encounter; R51.9 Headache, unspecified; M54.2 Cervicalgia; R68.84 Jaw pain; W11.XXXA Fall on and from ladder, initial encounter; Y93.H3 Activity, building and construction; Y92.69 Other specified industrial and construction area as the place of occurrence of the external cause; Y99.0 Civilian activity done for income or pay | CPT/HCPCS: A0425; A0429 ==

== ENCOUNTER 2023-04-19 14:08 | Emergency (ER) | payer OTHER ==
--- NOTE | 2023-04-19 14:17 | ED Physician Documentation ---
History of Present Illness - Stated complaint Stated Complaint: FALL FROM LADDER - History obtained from History obtained from: Patient, EMS - History of Present Illness Pain level max: 7 Pain level now: 5 - Additonal information Additional information: Patient is a 27-year-old male who presents after a fall off of a ladder today. He was sitting on the top of the ladder using a saw to remove nails when the saw kicked back and flung him off the ladder onto concrete. Struck his head on the concrete. Complains of pain to the back of the head as well as mild upper neck pain and mild low back pain. Otherwise no acute injuries. Unknown loss of consciousness, but when his coworkers arrived, they did find him awake and alert. No vomiting. No seizure activity. Last tetanus shot 2018. No numbness or tingling. Not on blood thinners. Not intoxicated. Review of Systems Constitutional: denies: Fever, Chills Respiratory: denies: Cough GI: denies: Abdominal Pain, Nausea, Vomiting, Diarrhea : denies: Incontinent Skin: denies: Rash Neurologic: denies: Focal weakness, Numbness PD PAST MEDICAL HISTORY - Past Medical History Cardiovascular: None Respiratory: None Neuro: None Endocrine/Autoimmune: None GI: None : Kidney stones HEENT: None Psych: None Musculoskeletal: None Derm: None - Past Surgical History Past Surgical History: No - Present Medications Home Medications: Ambulatory Orders Medication Instructions Recorded Confirmed No Known Home Medications 04/19/23 04/19/23 - Allergies Allergies/Adverse Reactions: Allergies Allergy/AdvReac Type Severity Reaction Status Date / Time No Known Drug Allergies Allergy Verified 04/19/23 14:24 - Social History Does the pt smoke?: Yes Smoking Status: Current every day smoker Does the pt drink ETOH?: Yes Does the pt have substance abuse?: No - Immunizations Immunizations are current?: No Immunizations: TDAP >10years/unknown - POLST Patient has POLST: No PD ED PE NORMAL - Vitals Vital signs reviewed: Yes - General General: Alert and oriented X 3, No acute distress, Well developed/nourished - HEENT HEENT: PERRL, Ears normal, Moist mucous membranes, Other (Posterior scalp hematoma, small amount of dried blood. No palpable skull fractures. small a brasion) - Neck Neck: Supple, no meningeal sign, Other (Mild upper C-spine tenderness to palpation. No step-off or deformity.) - Cardiac Cardiac: RRR, Strong equal pulses - Respiratory Respiratory: No respiratory distress, Clear bilaterally - Abdomen Abdomen: Soft, Non tender, Non distended - Back Back: Other (mild L spine TTP, no step off or deformity. ) - Derm Derm: Warm and dry - Extremities Extremities: No edema - Neuro Neuro: Alert and oriented X 3 - Psych Psych: Normal mood, Normal affect Results - Vitals Vitals: Vital Signs - 24 hr 04/19/23 04/19/23 14:15 16:44 Temperature 36.6 C Heart Rate 93 75 Respiratory 18 15 Rate Blood Pressure 133/85 H 118/74 O2 Saturation 100 99 Oxygen O2 Source Room air - Rads (name of study) Head CT Relevant Findings:: Final report received, See rad report Cervical spine CT Relevant Findings:: Final report received, See rad report Lumbar spine x-ray Relevant Findings:: Final report received, See rad report maxillofacial CT Relevant Findings:: Final report received, See rad report PD Medical Decision Making - ED course Complexity details: reviewed results, re-evaluated patient, considered differential, d/w patient, d/w family ED course: Patient is a 27-year-old male who fell off of a ladder backwards and hit his head on the concrete. No acute findings on head CT. No acute findings on maxillofacial or cervical spine CT. Maxillofacial CT was ordered as he was having left-sided jaw pain upon repeat evaluation. No significant findings on lumbar spine x-ray. C-collar removed after negative cervical spine CT. Ambulating well. Has a small abrasion on the posterior scalp, no significant laceration. No indication for roz or repair. No other acute injuries. Abdomen is soft, nontender nondistended on serial exam. We will continue supportive care and have him follow-up with his doctor. Patient counseled regarding signs and symptoms for which I believe and urgent re-evaluation would be necessary. Patient with good understanding of and agreement to plan and is comfortable going home at this time This document was made in part using voice recognition software. While efforts are made to proofread this document, sound alike and grammatical errors may occur. Departure - Departure Disposition: 01 Home, Self Care Clinical Impression: Scalp abrasion Qualifiers: Encounter type: initial encounter Qualified Code(s): S00.01XA - Abrasion of scalp, initial encounter Closed head injury Qualifiers: Encounter type: initial encounter Qualified Code(s): S09.90XA - Unspecified injury of head, initial encounter Condition: Good Instructions: ED Abrasion, ED Head Injury Closed Follow-Up: Your,doctor in 1 week [Other] Comments: Please follow-up with your doctor for further care. Please return if you worsen. You can use Motrin or Tylenol as needed for pain. Your head CT, facial CT, cervical spine CT and lumbar spine x-rays do not show any acute abnormalities today. Forms: PCP List, Activity restrictions Discharge Date/Time: 04/19/23 16:45
--- NOTE | 2023-04-19 14:44 | CT Report ---
PROCEDURE: CERVICAL SPINE WO INDICATIONS: fall, neck pain TECHNIQUE: Noncontrast 3 mm thick sections acquired from the skull base to the T4 level. Sagittal and coronal r eformats were then constructed. For radiation dose reduction, the following was used: automated exp osure control, adjustment of mA and/or kV according to patient size. COMPARISON: None. FINDINGS: Image quality: Excellent. Bones: No fractures or dislocations. Visualized superior ribs are intact. Soft tissues: Prevertebral soft tissues are normal in thickness. No paravertebral hematomas. No ap ical pneumothoraces. IMPRESSION: No acute, displaced fracture or traumatic subluxation. Reviewed by: Myles Kong on 04/19/2023 2:42 PM PDT Approved by: Myles Kong on 04/19/2023 2:42 PM PDT Station ID: [id number]
--- NOTE | 2023-04-19 14:49 | CT Report ---
PROCEDURE: HEAD WO INDICATIONS: fall, head pain TECHNIQUE: Noncontrast 4.5 mm thick angled axial sections acquired from the foramen magnum to the vertex. For r adiation dose reduction, the following was used: automated exposure control, adjustment of mA and/or kV according to patient size. COMPARISON: None. FINDINGS: Image quality: Excellent. CSF spaces: Basal cisterns are patent. No extra-axial fluid collections. Ventricles are normal in size and shape. Brain: No midline shift. No intracranial masses or hemorrhage. Scott-white matter interface is norm al. Skull and face: Calvarium and visualized facial bones are intact, without suspicious lesions. Sinuses: Visualized sinuses and mastoids are clear. IMPRESSION: No acute intracranial pathology Reviewed by: Myles Kong on 04/19/2023 2:47 PM PDT Approved by: Myles Kong on 04/19/2023 2:47 PM PDT Station ID: [id number]
--- NOTE | 2023-04-19 15:03 | XRAY Report ---
PROCEDURE: Lumbar Spine 2 View INDICATIONS: fall, back pain TECHNIQUE: 2 views of the lumbar spine were acquired. COMPARISON: CT 06/07/2017 FINDINGS: Bones: 5 dei-frq-beokwic vertebrae are present.. Grade 2 anterolisthesis of L5 on S1 secondary to pa rs defects. Mild disc height loss at L5-S1. No displaced fracture or traumatic subluxation. Soft tissues: Overlying bowel gas pattern is normal. No suspicious soft tissue calcifications. IMPRESSION: Grade 2 anterolisthesis of L5 on S1, 2 to pars defects. This is stable since 2017. No displaced fracture or traumatic subluxation. Reviewed by: Myles Kong on 04/19/2023 3:02 PM PDT Approved by: Myles Kong on 04/19/2023 3:02 PM PDT Station ID: [id number]
[2023-04-19] MEDS ORDERED: KETOROLAC 30 MG/ML VIAL IVP STA (15:16)
--- NOTE | 2023-04-19 16:14 | CT Report ---
PROCEDURE: Maxillofacial CT without contrast INDICATIONS: L mandible pain TECHNIQUE: Noncontrast 1.5 mm thick axial images acquired from the mandible through the frontal sinuses, with co shawn and sagittal reformatting. For radiation dose reduction, the following was used: automated ex posure control, adjustment of mA and/or kV according to patient size. COMPARISON: None. FINDINGS: Image quality: Excellent. Bones and teeth: Orbital mancuso are intact. Sinus mancuso show no fracture or deformity. Nasal bones and septum are intact. Visualized portions of the mandible demonstrate no fractures or subluxation. Zygomatic arches are intact. Pterygoid plates are intact. Visualized portions of the skull base an d auditory canals are intact. Sinuses: Paranasal sinuses are aerated, without fluid levels, mucosal thickening, or mucoceles. Mas toid air cells are aerated. Incidental nasal septal spurring to the right and no pneumatization of t he right middle turbinate Soft tissues: No edema, masses, or fluid collections. No enlarged lymph nodes. No soft tissue lace rations or debris. Vascular: Visualized vascular structures appear normal in the absence of contrast. Bony vascular fo ramina and canals are intact. IMPRESSION: Unremarkable maxillofacial CT. No evidence of mandibular fracture Reviewed by: Maicol Hudson MD on 04/19/2023 3:13 PM JOVANNA Approved by: Maicol Hudson MD on 04/19/2023 3:13 PM AKDT Station ID: [id number]
[2023-04-19 16:51] VITALS: BP 118/74
== END 2023-04-19 16:45 | disposition home or self-care (01) ==
LOC: EDUNIT# → ED 14:08
DX: S00.01XA Abrasion of scalp, initial encounter (principal); S00.03XA Contusion of scalp, initial encounter; S09.90XA Unspecified injury of head, initial encounter; W11.XXXA Fall on and from ladder, initial encounter; Y93.H3 Activity, building and construction; Y99.0 Civilian activity done for income or pay; F17.200 Nicotine dependence, unspecified, uncomplicated
CPT/HCPCS: 1040M; 70450; 70486; 72100; 72125; 96374; 99283; 99284